=== PATIENT | female | born 1955 | race Caucasian/White ===

== ENCOUNTER 2019-06-10 14:32 | Inpatient (IN) | payer MEDICAID, OTHER ==
[2019-06-10] MEDS ORDERED: Nystatin TOP POWDER* 15 GM BTL TOPICAL ONE (14:54)
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
[2019-06-10 15:04] LABS: ABS Basophils 0.1 10^3/ul (0-0.2); ABS Lymphocytes 1.2 10^3/ul (1.0-4.8); ABS Monocytes 0.5 10^3/ul (0-0.8); ABS Neutrophils 9.3 10^3/ul (1.5-7.7); Eosinophil % 0.1 %; Hematocrit 51 % (35-47); Hemoglobin 17.8 g/dL (12.0-16.0); Lymphocyte % 10.5 %; Mean Corpuscular HGB Conc 35 g/dL (31-36); Mean Corpuscular Hemoglobin 31 pg (27-31); Mean Corpuscular Volume 88 fL (80-97); Mean Platelet Volume 9.5 fL (7.4-10.4); Nucleated Red Blood Cells % 0.1; Platelet Count 198 10^3/uL (150-450); Red Blood Count 5.85 10^6 /uL (3.70-4.87); Red Cell Distribution Width 14 % (10-15); White Blood Count 11.1 10^3/uL (3.5-10.8)
[2019-06-10 15:25] LABS: ALT 14 U/L (7-52); AST 12 U/L (13-39); Albumin 3.9 g/dL (3.2-5.2); Albumin/Globulin Ratio 1.4 (1-3); Alkaline Phosphatase 64 U/L (34-104); Anion Gap 10 mmol/L (2-11); BUN/Creatinine Ratio 38.3 (8-20); Blood Urea Nitrogen 18 mg/dL (6-24); CO2 Carbon Dioxide 25 mmol/L (22-32); Calcium 9.5 mg/dL (8.6-10.3); Chloride 103 mmol/L (101-111); EGFR African American 161.9 (>60); EGFR Non-African American 133.8 (>60); Globulin 2.7 g/dL (2-4); Glucose 175 mg/dL (70-100); Potassium 3.4 mmol/L (3.5-5.0); Sodium 138 mmol/L (135-145); Total Protein 6.6 g/dL (6.4-8.9)
[2019-06-10] MEDS ORDERED: Potassium Chlor TAB* 20 MEQ TAB.ER PO ONE (15:31)
[2019-06-10] MEDS ORDERED: Tetan/Diph/Pertus SYR(Tdap)* 0.5 ML SYR(BOOSTRIX) use SYR contains LATEX IM ONE (15:35)
[2019-06-10 15:51] LABS: Acetaminophen < 15 mcg/mL; Alcohol < 10 mg/dL (<10); Salicylate < 2.50 mg/dL (<30)
[2019-06-10 16:05] LABS: TSH (Thyroid Stimulating Horm) 1.81 mcIU/mL (0.34-5.60)
[2019-06-10] MEDS ORDERED: Al Hydrox/Mg Hydrox/Simet LIQ* 30 ML UDC PO PRN (16:41)
[2019-06-10] MEDS ORDERED: Nicotine* 2MG (FRUIT FLAVOR) GUM PO PRN (16:41)
[2019-06-10] MEDS ORDERED: Acetaminophen TAB* 325 MG PO PRN (16:41)
[2019-06-10] MEDS: Nicotine Patch Removal NOTE FOLLOW UP SCH (23:26)
[2019-06-11] MEDS: Vitamin THERAPEUTIC TAB PO SCH (10:43)
[2019-06-11] MEDS: Nicotine PATCH 14 MG/24 HR* PATCH TRANSDERM SCH (10:43)
[2019-06-11] MEDS ORDERED: Metoprolol/HCTZ 50/25 (NF) 1 TAB PO ONE (15:20)
[2019-06-11] MEDS ORDERED: Hydrochlorothiazide TAB* 25 MG PO ONE (18:00)
[2019-06-11] MEDS ORDERED: Metoprolol Tartrate TAB* 50 mg PO ONE (18:00)
[2019-06-11] MEDS: Nicotine Patch Removal NOTE FOLLOW UP SCH (19:31)
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
[2019-06-12] MEDS: Vitamin THERAPEUTIC TAB PO SCH (11:17)
[2019-06-12] MEDS: Nicotine PATCH 14 MG/24 HR* PATCH TRANSDERM SCH (11:17)
[2019-06-12] MEDS: Nicotine Patch Removal NOTE FOLLOW UP SCH (19:34)
[2019-06-13] MEDS: Nicotine PATCH 14 MG/24 HR* PATCH TRANSDERM SCH (08:28)
[2019-06-13] MEDS: Vitamin THERAPEUTIC TAB PO SCH (08:28)
--- NOTE | 2019-06-13 17:46 | PN ---
Subjective - Subjective Date of Service: 06/13/19 Service Type: 96131 Hosp care 25 min moderate complexity Subjective: Carina was admitted during the weekend because of severe depression and a suicide attempt by stabbing herself with a knife. She hasn't been seeing any doctor due to depression and was self neglecting. Continues to be depressed and hopeless but denies SI today. Also denies hallucinations or delusions. Objective - General Observations Appearance: Neat Appears Stated Age: Yes Stature: Short Posture: Slumped Eye Contact: Average Behavior/Activity: Slowed - Interaction Observations Attitude Towards Examiner: Cooperative Stated Mood: Dysphoric Affect: Blunted Speech Pattern/Tone: Delayed, Quiet Volume Thought Process: Coherent Perception: WNL Thought Content: WNL Thought Process: Lethality: Passive Wish Hallucination Type: Denies Delusion Type: Denies - Cognitive Function Orientation: A&O x 4 Level of Consciousness: Awake, Alert, Appropriate Cognition: WNL Estimated Intelligence: Normal Insight: WNL Judgment Within Normal Limits: No Ability to Make Reasonable Decisions: Mildly Impaired - Medication Compliance Cooperative with Inpatient Medication Regimen: Yes - Group Participation Participates in Group Activities: Yes Assessment - Assessment Merits Inpatient Hospitalization: For Immediate Safety, For Stabilization, Pending Safe DC Plan Plan - Plan Treatment Plan: Name: SHNU PADILLA Birthdate: 1955 [id number] Continued Medication Management: Start Medication Medications: Current Medications Acetaminophen (Tylenol Tab*) 650 mg PO Q4H PRN PRN Reason: for pain; or Temp >101 F Al Hydrox/Mg Hydrox/Simethicone (Maalox Plus*) 30 ml PO Q4H PRN PRN Reason: INDIGESTION Multivitamins (Theragran Tab*) 1 tab PO DAILY [facility] Last Admin: 06/13/19 08:28 Dose: Not Given Nicotine (Nicotine Patch 14 Mg/24 Hr*) 1 patch TRANSDERM DAILY [facility] Last Admin: 06/13/19 08:28 Dose: Not Given Nicotine Polacrilex (Nicotine Gum*) 2 mg PO Q2H PRN PRN Reason: CRAVING Pharmacy Profile Note (Nicotine Patch Removal Note*) 1 note FOLLOW UP 2100 [facility] Last Admin: 06/12/19 19:34 Dose: Not Given - Discharge Plan Discharge Plan: Outpatient Follow Up Outpatient Program: [facility]
[2019-06-13] MEDS: Nicotine Patch Removal NOTE FOLLOW UP SCH (20:50)
[2019-06-14] MEDS: Nicotine PATCH 14 MG/24 HR* PATCH TRANSDERM SCH (10:32)
[2019-06-14] MEDS: Vitamin THERAPEUTIC TAB PO SCH (10:32)
--- NOTE | 2019-06-14 11:36 | PN ---
BSU: Group Therapy Note - Service Type Service Type: 64095 Group Psychotherapy - Cognitive Behavioral Group Therapy ( CBT):Patient attended CBT programming this morning and presented with flat affect that did not vary with discussion. Although responsive to direct prompts to respond to questions, patient did not engage in spontaneous conversation.
--- NOTE | 2019-06-14 15:15 | PN ---
Subjective - Subjective Date of Service: 06/14/19 Service Type: 74258 Hosp care 25 min moderate complexity Subjective: Patient presents with blunted affect and speech latencies. She endorses poor concentration, low energy and hypersomnia. I inquire about history of therapy and she reports she has "thought of doing that through my doctor." She states she has not been to her primary MD, Dr Pittman, for over a year. She denies history of memory problems, hallucinations or joaquina. We discuss starting an SSRI and she agrees. Objective - General Observations Appearance: Well Groomed Stature: Overweight Posture: Slumped Eye Contact: Average Behavior/Activity: Slowed - Interaction Observations Attitude Towards Examiner: Cooperative, Anxious Stated Mood: Dysphoric Affect: Blunted Speech Pattern/Tone: Quiet Volume Thought Process: Impoverished, [place] Perception: WNL Thought Content: Depressive Thought Process: Lethality: Passive Wish Hallucination Type: None Delusion Type: None - Cognitive Function Orientation: A&O x 4 Level of Consciousness: Alert Cognition: Impaired Attention/Concentration Estimated Intelligence: Normal Insight: Difficulty Acknowledging Presence of Psyciatric Problems Judgment Within Normal Limits: No Ability to Make Reasonable Decisions: Moderately Impaired - Medication Compliance Cooperative with Inpatient Medication Regimen: Yes - Group Participation Participates in Group Activities: Yes Assessment - Assessment Merits Inpatient Hospitalization: For Immediate Safety, For Stabilization Inpatient DSM-V Dx: F32.9 Clinical Impression: 64yo white female with no prior psychiatric treatment who presented to ED via police after her phoned them after she made a suicide attempt by stabbing herself on the chest and abdomen. She endorses depressive symptoms for an unknown time period. She merits hospitalization for immediate safety and stabilization. Plan - Plan Treatment Plan: Name: SHUN PADILLA Birthdate: 1955 [id number] continue acute intensive psychiatric treatment. may decrease to q30 min and allow staff pass. start sertraline 50mg daily. discharge to include outpatient MH referrals. Continued Medication Management: Start Medication Medications: Current Medications Acetaminophen (Tylenol Tab*) 650 mg PO Q4H PRN PRN Reason: for pain; or Temp >101 F Al Hydrox/Mg Hydrox/Simethicone (Maalox Plus*) 30 ml PO Q4H PRN PRN Reason: INDIGESTION Multivitamins (Theragran Tab*) 1 tab PO DAILY [facility] Last Admin: 06/14/19 10:32 Dose: Not Given Nicotine (Nicotine Patch 14 Mg/24 Hr*) 1 patch TRANSDERM DAILY [facility] Last Admin: 06/14/19 10:32 Dose: Not Given Nicotine Polacrilex (Nicotine Gum*) 2 mg PO Q2H PRN PRN Reason: CRAVING Pharmacy Profile Note (Nicotine Patch Removal Note*) 1 note FOLLOW UP 2099 [facility] Last Admin: 06/13/19 20:50 Dose: Not Given Sertraline HCl (Zoloft*) 50 mg PO DAILY [facility] - Discharge Plan Discharge Plan: Inpatient Hospitalization
[2019-06-14] MEDS: Sertraline* 50 MG TAB PO SCH (15:58)
[2019-06-14] MEDS: Nicotine Patch Removal NOTE FOLLOW UP SCH (20:56)
[2019-06-15] MEDS: Sertraline* 50 MG TAB PO SCH (11:52)
[2019-06-15] MEDS: Nicotine PATCH 14 MG/24 HR* PATCH TRANSDERM SCH (11:52)
[2019-06-15] MEDS: Vitamin THERAPEUTIC TAB PO SCH (11:52)
--- NOTE | 2019-06-15 12:19 | PN ---
Subjective - Subjective Date of Service: 06/15/19 Service Type: [id number] Hosp care 25 min moderate complexity Subjective: Patient presents with periods of confusion. She referred to a staff member as her daughter, Rebecca and has made comments about her not wanting her to live with him. Today, patient was found walking about unit during a group. She reports improved mood and denies side effects from first dose. She appears surprised when I ask if she has her dose yet today. She states she thought it was a one-time dose. Patient agrees to participate in screening for cognition and scores 19/30 on MoCA test. She missed points for delayed recall, serial 7s and language fluency. SW is awaiting phone contact with , will continue to attempt. Objective - General Observations Appearance: Well Groomed Stature: Overweight Posture: Slumped Eye Contact: Average Behavior/Activity: Slowed, Peculiar - Interaction Observations Attitude Towards Examiner: Cooperative, Anxious Stated Mood: Dysphoric Affect: Blunted Speech Pattern/Tone: Quiet Volume Thought Process: Impoverished Perception: WNL Thought Content: Depressive Hallucination Type: None Delusion Type: None - Cognitive Function Orientation: A&O x 4 Level of Consciousness: Alert Cognition: Impaired Cognition, Impaired Memory, Impaired Attention/Concentration , Impaired Calculation Ability Estimated Intelligence: Normal Insight: Difficulty Acknowledging Presence of Psyciatric Problems Judgment Within Normal Limits: No Ability to Make Reasonable Decisions: Serverely Impaired - Medication Compliance Cooperative with Inpatient Medication Regimen: Yes - Group Participation Participates in Group Activities: Partial Assessment - Assessment Merits Inpatient Hospitalization: For Immediate Safety, For Stabilization, Diagnosis Determination, For Ongoing Evaluation Inpatient DSM-V Dx: F32.9 Clinical Impression: 64yo white female with no prior psychiatric treatment who presented to ED via police after her phoned them after she made a suicide attempt by stabbing herself on the chest and abdomen. She endorses depressive symptoms for an unknown time period. She merits hospitalization for immediate safety and stabilization. Plan - Plan Treatment Plan: Name: SHUN PADILLA Birthdate: 1955 [id number] continue acute intensive psychiatric treatment. may decrease to q30 min and allow staff pass. continue sertraline 50mg daily. obtain collateral information from family members discharge to include outpatient referrals. Continued Medication Management: Start Medication Medications: Current Medications Acetaminophen (Tylenol Tab*) 650 mg PO Q4H PRN PRN Reason: for pain; or Temp >101 F Al Hydrox/Mg Hydrox/Simethicone (Maalox Plus*) 30 ml PO Q4H PRN PRN Reason: INDIGESTION Multivitamins (Theragran Tab*) 1 tab PO DAILY [facility] Last Admin: 06/15/19 11:52 Dose: 1 tab Nicotine (Nicotine Patch 14 Mg/24 Hr*) 1 patch TRANSDERM DAILY [facility] Last Admin: 06/15/19 11:52 Dose: Not Given Nicotine Polacrilex (Nicotine Gum*) 2 mg PO Q2H PRN PRN Reason: CRAVING Pharmacy Profile Note (Nicotine Patch Removal Note*) 1 note FOLLOW UP 2100 [facility] Last Admin: 06/14/19 20:56 Dose: Not Given Sertraline HCl (Zoloft*) 50 mg PO DAILY [facility] Last Admin: 06/15/19 11:52 Dose: 50 mg - Discharge Plan Discharge Plan: Inpatient Hospitalization
[2019-06-15] MEDS: Nicotine Patch Removal NOTE FOLLOW UP SCH (20:16)
[2019-06-16] MEDS: Sertraline* 50 MG TAB PO SCH (08:10)
[2019-06-16] MEDS: Vitamin THERAPEUTIC TAB PO SCH (08:10)
[2019-06-16] MEDS: Nicotine PATCH 14 MG/24 HR* PATCH TRANSDERM SCH (08:11)
[2019-06-16 09:03] VITALS: BP 123/83
[2019-06-16 14:40] LABS: Urine Appearance Cloudy; Urine Bacteria 1+ (Absent); Urine Bilirubin Negative (Negative); Urine Blood Negative (Negative); Urine Color Amber; Urine Glucose Negative (Negative); Urine Ketones Trace (Negative); Urine Nitrite Negative (Negative); Urine Protein 1+(30 mg/dL) (Negative); Urine Red Blood Cell 2+(6-10/hpf) (Absent); Urine Specific Gravity 1.023 (1.010-1.030); Urine Squamous Epithelial Cell Present (Absent); Urine Urobilinogen Positive (Negative); Urine White Blood Cell 2+(11-20/hpf) (Absent)
[2019-06-16] MEDS ORDERED: Sulfamethox/Trimethoprim DS 800/160* TAB PO SCH (17:00)
--- NOTE | 2019-06-17 15:22 | DS ---
CC: [facility]; Dr. Pittman, [place] * DISCHARGE SUMMARY: DATE OF ADMISSION: 06/10/19 DATE OF DISCHARGE: 06/16/19 SUPERVISING PSYCHIATRIST: Dr. Quincy Jiang.* (DICTATED BY DRISS BRO NP) DISCHARGE DIAGNOSES: 1. Major depressive disorder. 2. Urinary tract infection. CONDITION AT THE TIME OF DISCHARGE: Improved. The patient has denied suicidal ideation throughout her stay here. She reports readiness to return home. She reports that she misses her family. Collateral information obtained from family members indicates that she is at baseline. She reports improved mood. She has been partially attending groups and milieu. She reports sleeping well. She has been observed to complete her own ADLs and denies suicidal ideation or thoughts of self-harm. She completed a safety plan with a foster care social worker. The patient is discharged to home. MENTAL STATUS EXAM: Paulina is alert and oriented to time, place, and person. She makes good eye contact. Speech is soft and spontaneous, mildly delayed. She reports her mood is "good" and affect has full range. Thought process is mildly impoverished to improved, otherwise logical and goal directed. Thought content is negative for suicidal ideation or passive wish. She denies HI or . She denies A/V hallucinations and there are no perceptual disturbances noted. Her insight and judgment are fair, improved. Fund of knowledge is basic. INSTRUCTIONS GIVEN TO THE PATIENT: A. Medications: 1. Sertraline 50 mg p.o. daily. 2. Bactrim DS b.i.d. x10 days. B. Diet: Regular. C. Activity: Ambulation as tolerated. Tobacco cessation is not applicable. There are no pending labs or diagnostic studies. D. Followup care: The patient was referred to [facility] and has an intake on 06/22/19. She is referred back to her primary care provider, Dr. Pittman, in [place]. E. Substance use followup is not applicable. HOSPITAL COURSE: Part A. Reason for admission: The patient is a 64-year-old female with no prior history of psychiatric treatments, who was brought by EMS following stabbing herself on the chest and abdomen with a knife. HPI: The patient reports she has been experiencing depression for some time, but has never talked about it to her primary care provider or other professional until she was brought to the hospital on the evening of 06/10/19. She states that her depression was so bad that she tried to stab herself on her chest with a household knife. Her called 911 and she was brought to the emergency room. The patient presented as flat with extended latencies. She had difficulty verbalizing stressors or symptoms. The admitting psychiatrist was able to converse with her and she reported that she felt sad all the time, cries frequently, socially isolated and endorsed anhedonia. She endorsed low self-esteem and low self-worth. Although she had some hope left, she did not think her life was worth living and she picked up the knife to end it. There are a few life-related stressors at home including her 26-year-old son who has not been able to do much in his life and there may be some financial issues, although she thinks it is adequate for them to survive. She reports sleeping more so than usual and decreased appetite. Part B. Psychiatric treatment rendered: The patient was admitted to the adult behavioral services unit on involuntary status. Code status was full. She was placed on 15-minute checks for safety. This was decreased to 30-minute observation. She was moderately participatory in unit programming. She agreed to trial sertraline and denied untoward effects. Collateral information obtained from family members indicated that she was often a quiet person with mild latencies; however, she has been less communicative with family members in the recent past. The patient was started on Bactrim for UTI. She completed MoCA assessment and scored 19/30. I expect this may improve if this was repeated after treatment for UTI. The patient reported thoughts of seeking a therapist in the past, but had not followed through with her primary care provider. We obtained records from her primary care provider and she is there rarely and often cancels appointments. We notified her and her family members of Medicaid transportation option and gave her information about this. The patient's daughter was informed of concerning attention and memory. The patient agreed to referral to outpatient counseling at [facility]. Overall, Paulina was a pleasure to work with and we hope that her symptoms improve and she follows through on recommendations. DRISS BRO NP [id number]/[facility] #: [id number] JAMIE
== END 2019-06-16 19:55 | disposition home or self-care (01) | DRG 754 ==
LOC: ED 14:32 → BSU 20:00
PROVIDERS: ADMIT Psychiatry & Neurology Psychiatry; ATTEND Psychiatry & Neurology Psychiatry
PROC: GZHZZZZ Group Psychotherapy (ICD-10-PCS; principal; 2019-06-14)
DX: F32.9 Major depressive disorder, single episode, unspecified (principal); N39.0 Urinary tract infection, site not specified; I10 Essential (primary) hypertension; E11.9 Type 2 diabetes mellitus without complications; F17.200 Nicotine dependence, unspecified, uncomplicated; S20.319A Abrasion of unspecified front wall of thorax, initial encounter; X78.1XXA Intentional self-harm by knife, initial encounter; E66.3 Overweight; Z68.31 Body mass index [BMI] 31.0-31.9, adult; Z82.49 Family history of ischemic heart disease and other diseases of the circulatory system; Z83.3 Family history of diabetes mellitus; Z90.710 Acquired absence of both cervix and uterus
CPT/HCPCS: 36415; 80053; 80061; 80320; 80329; 81003; 81015; 83036; 84443; 85025; 87086; 90715; 90853; 99222; 99232; 99238; 99284; A9270-GY; G0480